=== PATIENT | male | born 1960 | race Caucasian/White ===

== ENCOUNTER 2017-08-03 20:21 | Inpatient (IN) | payer OTHER ==
[~2017-08-03] VITALS: Ht 165.1 cm; Wt 67.0 kg
--- NOTE | ~2017-08-03 | HC ---
[facility] [place] [address] CONSULTATION Name: LILIANA RICHARDS Room #: 206-P [facility] IN M.R.#: [id number] Admission: 08/03/17 Attend Phys: Kalen Nicholas MD Discharge: 08/06/17 Date of : 56 Report #: [id number] THIS REPORT FOR: //name// CC: Kalen Nicholas [facility] physician/PCP DATE OF SERVICE: 08/04/2017 HISTORY OF PRESENT ILLNESS: This is a 57-year-old male patient who was evaluated by me for seizure. The patient does not remember anything about the seizure. described a pretty typical grand mal seizure where he was trying to bend and noticed that he became stiff followed by frothing from the mouth and postictal confusion, which lasted about 15 minutes. She indicated that he had another seizure in the Emergency Room. The patient does not remember anything about the seizure. REVIEW OF SYSTEMS: Indicate the amount of alcohol he drinks is not clear. He used to drink very heavily, but he has cut back. He still thinks he drinks about 5-6 beers a day, but he has not taken any alcohol in the last 4-5 days according to the . When he came in he had some hyponatremia and hypokalemia. His magnesium was normal. The patient has hepatitis C and recently finished Harvoni. I carried out 14-point review of system and except as described above 14-point review of system was mostly unremarkable. He still is slightly confused, is better, but is not complaining of any new eye, ENT, cardiac, respiratory, GI, , constitutional, dermatological, hematological, psychiatric, throat, allergic, endocrine symptoms. He does have knee pains for a long time. He said he used to be in martial art and since then he has that. FAMILY HISTORY: Unremarkable. SOCIAL HISTORY: He does have a history of drinking alcohol pretty significantly. He used to do drugs, but he said he has not done that for some time. He does smoke. PHYSICAL EXAMINATION: Indicate he is alert, he is responsive. He indicates it is June, but otherwise he can tell me what month it is and who the president is. His cranial nerve examination 07-06 looks mostly unremarkable. His strength, sensation, reflexes and tone looks symmetrical. He has reflexes in the lower extremities, I cannot tell about the plantar. He does not have any meningeal sign. I could not look at the patient's fundus. He is moderately built individual who does not have any dysmorphic features of eyes, ears and face. His vision and hearing looks adequate. He has no thyroid mass or carotid bruits. Pulses are palpable. He has no edema, cyanosis or jaundice. Cardiac examination does not appear to be showing any abnormality and he does not appear to have any murmur. Heart sounds look okay, does not have any atrial fibrillation. No respiratory difficulty or rhonchi was noticed. Vital signs [address] [address] CONSULTATION Name: LILIANA RICHARDS Room #: [facility] IN ..#: [id number] Admission: 08/03/17 Attend Phys: Kalen Nicholas MD Discharge: 08/06/17 Date of : 56 Report #: [id number] indicate a blood pressure of 148/95, respirations 18, pulse is 87, temperature is 99.6. He does have a high MCV. He did have some hyponatremia, but he is better from that. He did have a CT scan of the head, it showed some atrophy, but was otherwise unremarkable. IMPRESSION: 1. Seizures. It is probably related to his alcohol, especially if he was not drinking recently. 2. Lalitha does not have high incidence of seizure. 3. Hyponatremia may have contributed to it, but hypokalemia usually does not cause seizure till it affects the heart. 4. His alcohol intake may be more than what he is admitting. 5. Mild atrophy on the CT scan and for that he needs to stop drinking alcohol because it is appearing at this age and because of seizure. RECOMMENDATION: 1. I had a long discussion with the patient. I discussed with him that his blood still shows stigma for alcohol drinking and he must stop drinking alcohol altogether. 2. I agree with thiamine and multivitamin. 3. We will check an EEG and an MRI. 4. When the patient is dismissed he needs to take seizure precautions at least for [address] at least for 6 months. 5. I did discuss with them the advantages and disadvantages of going on anticonvulsant. If he does not go on anticonvulsant, he should monitor his electrolytes properly and should not drink alcohol at all and take thiamine and multivitamin for a few days. Thank you very much for this referral and if you have any question, please feel free to contact me. All of it was discussed with the patient in detail. <ELECTRONICALLY SIGNED> By: Toi Vera MD 08/07/17 2134 [id number] Toi Vera MD /nt
--- NOTE | ~2017-08-03 | EKG ---
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 : 1960 Requested By: Yuliana Dunham Order Number: [id number] MD: Kavon Waldrop Measurements Intervals [place] Rate: 122 P: 24 DE: 132 QRS: -48 QRSD: 98 T: 18 QT: 339 QTc: 483 Interpretive Statements Sinus tachycardia Left anterior fascicular block Abnormal R-wave progression, late transition Left ventricular hypertrophy Borderline prolonged QT interval No previous ECG available for comparison Electronically Signed On 08-04-2017 16:33:31 CDT by Kavon Waldrop [email or web address] <ELECTRONICALLY SIGNED> By: Kavon Waldrop MD, [facility] 08/04/171632 32 32 Kavon Waldrop MD, [facility] /EPI
--- NOTE | ~2017-08-03 | EEG ---
[facility] [place] [address] ELECTROENCEPHALOGRAM Name: LILIANA RICHARDS Room #: 206-P [facility] IN M.R.#: [id number] Admission: 08/03/17 Attend Phys: Kalen Nicholas MD Discharge: 08/06/17 Date of : 56 Report #: [id number] THIS REPORT FOR: //name// CC: Kalen Nicholas [facility] physician/PCP DATE OF SERVICE: 08/04/2017 This patient is being evaluated for the possibility of seizure. EEG was done by placing the electrodes by standard 10-20 system of electrode placement. Both referential and sequential montages were used for recording. Background activity in this patient's EEG is about 9-10 Hz and 30 microvolt. It is a symmetrical activity. Photic stimulation was unremarkable. The patient went to sleep that is associated with bilaterally symmetrical sleep spindle and vertex sharp waves. Throughout the record, no active epileptiform activity was noticed. IMPRESSION: This patient's EEG is within normal limits. Thank you very much for this referral. <ELECTRONICALLY SIGNED> By: Toi Vera MD 08/07/17 2135 29 40 Toi Vera MD /nt
[2017-08-03 20:22] VITALS: BP 146/104
[2017-08-03] MEDS ORDERED: ASPIRIN325 PO (20:28)
[2017-08-03 20:38] LABS: HEMATOCRIT 39.8 % (42.0-52.0); HEMOGLOBIN 13.5 gm/dL (14.0-18.0); MCH 34.9 pg (26.0-34.0); MCHC 33.8 g/dL (28.0-37.0); MCV 103.3 fL (80.0-100.0); PLATELET COUNT 159 thou/uL (150-400); RBC 3.85 mil/uL (4.50-6.00); RDW 13.1 % (10.5-14.5); WBC 13.2 thou/uL (4.0-11.0)
[2017-08-03] MEDS ORDERED: ASPIR 8181 MG PO (20:40)
[2017-08-03] MEDS ORDERED: VITAMIN D1000 UNI1 PO (20:44)
[2017-08-03] MEDS ORDERED: LEVO-T50 MCG PO (20:44)
[2017-08-03 20:45] LABS: ANION GAP 22 mmol/L (7-16); BUN 4 mg/dL (7-18); CALCIUM 9.1 mg/dL (8.5-10.1); CHLORIDE 92 mmol/L (98-107); CO2 14 mmol/L (21-32); CREATININE 0.9 mg/dL (0.7-1.3); GLUCOSE 127 mg/dL (74-106); SODIUM 128 mmol/L (136-145)
[2017-08-03] MEDS ORDERED: IRON325 PO (20:45)
[2017-08-03] MEDS ORDERED: VITAMINC500 PO (20:45)
[2017-08-03 20:47] LABS: POTASSIUM 2.8 mmol/L (3.5-5.1)
[2017-08-03] MEDS ORDERED: HARVONI 90-4001 EACH PO (20:47)
[2017-08-03 20:55] LABS: ALBUMIN 3.6 g/dL (3.4-5.0); SGOT 74 U/L (15-37); SGPT 57 U/L (30-65); TOTAL BILIRUBIN 0.7 mg/dL (<0.1-1.0); TOTAL PROTEIN 7.8 g/dL (6.4-8.2); TROPONIN-I < 0.04 ng/mL (<0.06)
[2017-08-03 21:01] LABS: ABSOLUTE NEUTROPHILS 10.8 thou/uL (1.4-8.2)
[2017-08-03 21:02] LABS: MACROCYTES 1+; POLYCHROMASIA SLIGHT
[2017-08-03 21:12] LABS: URINE BILIRUBIN NEGATIVE (Negative); URINE BLOOD NEGATIVE (Negative); URINE CLARITY CLEAR; URINE COLOR YELLOW; URINE GLUCOSE-RANDOM* NEGATIVE (Negative); URINE KETONES 1+ (Negative); URINE LEUKOCYTES NEGATIVE (Negative); URINE NITRITE NEGATIVE (Negative); URINE PROTEIN (DIPSTICK) 2+ (Negative); URINE SPECIFIC GRAVITY >= 1.030 (1.005-1.035); URINE UROBILINOGEN 0.2 E.U./dl (0.2-1.0)
[2017-08-03 21:21] LABS: AMP/METHAMP Negative (Negative); BARBITURATES Negative (Negative); BENZODIAZEPINES Negative (Negative); COCAINE Negative (Negative); METHADONE Negative (Negative); OPIATES Negative (Negative); PCP Negative (Negative)
[2017-08-03 21:22] LABS: BACTERIA None Seen /HPF (None Seen); MUCUS >6 Heavy strn/LPF (None Seen); SQUAMOUS 0-3 Few /LPF (0-3); URINE RBC 0-2 Rare /HPF (0-2); URINE WBC 0-5 Rare /HPF (0-5)
[2017-08-03 21:23] LABS: AMORPHOUS URATES Many /LPF (None Seen); HYALINE CASTS 4-10 Moderate /LPF (None Seen)
[2017-08-03 21:37] VITALS: BP 129/97
[2017-08-03 22:26] VITALS: BP 124/99
[2017-08-04] MEDS ORDERED: LEXAPRO20 MG PO (01:01)
[2017-08-04] MEDS ORDERED: OMEPRAZOLE40 MG PO (01:03)
[2017-08-04 04:38] VITALS: BP 149/83
[2017-08-04 04:50] LABS: CALCIUM 8.5 mg/dL (8.5-10.1); CREATININE 0.6 mg/dL (0.7-1.3)
[2017-08-04 05:26] LABS: HEMATOCRIT 35.9 % (42.0-52.0); HEMOGLOBIN 12.3 gm/dL (14.0-18.0); MCH 34.9 pg (26.0-34.0); MCHC 34.2 g/dL (28.0-37.0); RBC 3.52 mil/uL (4.50-6.00); RDW 13.1 % (10.5-14.5); WBC 10.3 thou/uL (4.0-11.0)
[2017-08-04 07:30] VITALS: BP 148/95
[2017-08-04 11:47] VITALS: BP 167/98
[2017-08-04 15:08] VITALS: BP 163/102
[2017-08-04 19:56] VITALS: BP 158/105
[2017-08-05] VITALS (7 sets, daily range): BP systolic 126–171; BP diastolic 82–103
[2017-08-06 04:43] VITALS: BP 172/106
[2017-08-06 07:41] VITALS: BP 102/99
[2017-08-06 10:43] VITALS: BP 102/99
== END 2017-08-06 11:27 | disposition home or self-care (01) | DRG 100 ==
LOC: ER 20:21 → 2N 21:24 → EROBS 21:24 → 2N 21:38 → ENTRNSPT 08-06 11:11 → EDTRNSPTSTS 08-06 11:23 → 2N 08-06 11:27
PROVIDERS: Nurse Practitioner Acute Care; Physician Assistant
DX: G40.89 Other seizures (principal); E43 Unspecified severe protein-calorie malnutrition; E87.1 Hypo-osmolality and hyponatremia; F10.239 Alcohol dependence with withdrawal, unspecified; B19.20 Unspecified viral hepatitis C without hepatic coma; E87.6 Hypokalemia; E03.9 Hypothyroidism, unspecified; F32.9 Major depressive disorder, single episode, unspecified; F17.210 Nicotine dependence, cigarettes, uncomplicated; Z79.82 Long term (current) use of aspirin; Z88.6 Allergy status to analgesic agent; Z79.899 Other long term (current) drug therapy; Z28.21 Immunization not carried out because of patient refusal
CPT/HCPCS: 10081

== ENCOUNTER → 2021-06-07 | Outpatient (CLI) | payer OTHER ==
[~2021-06-07] MED LIST: ASPIR 8181 MG PO; ASPIRIN325 PO; HARVONI 90-4001 EACH PO; IRON325 PO; LEVO-T50 MCG PO; LEXAPRO20 MG PO; OMEPRAZOLE40 MG PO; VITAMIN D1000 UNI1 PO; VITAMINC500 PO
== END ==
LOC: SJCVCIMAG 09:16
PROVIDERS: ATTEND Internal Medicine
DX: I65.23 Occlusion and stenosis of bilateral carotid arteries (principal); M79.605 Pain in left leg; M79.604 Pain in right leg; E78.5 Hyperlipidemia, unspecified; E03.9 Hypothyroidism, unspecified; F33.1 Major depressive disorder, recurrent, moderate; F17.210 Nicotine dependence, cigarettes, uncomplicated; Z82.49 Family history of ischemic heart disease and other diseases of the circulatory system; Z72.89 Other problems related to lifestyle; Z88.8 Allergy status to other drugs, medicaments and biological substances; Z79.82 Long term (current) use of aspirin; Z79.899 Other long term (current) drug therapy

== ENCOUNTER → 2021-06-14 | Outpatient (CLI) | payer OTHER | LOC: CAT 08:57 | PROVIDERS: ATTEND Internal Medicine | DX: R91.1 Solitary pulmonary nodule (principal); M40.294 Other kyphosis, thoracic region; M19.012 Primary osteoarthritis, left shoulder; M19.011 Primary osteoarthritis, right shoulder; M47.814 Spondylosis without myelopathy or radiculopathy, thoracic region; Z72.0 Tobacco use ==